=== PATIENT | male | born 1950 | race Caucasian/White ===

== ENCOUNTER 2018-09-06 18:08 | Emergency (ER) | payer OTHER, MEDICAID ==
[~2018-09-06] VITALS: Ht 165.1 cm; Wt 82.6 kg
[2018-09-06 18:22] VITALS: BP 178/92
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
--- NOTE | 2018-09-06 18:31 | NUR ---
DR VIDAL AT BEDSIDE
[2018-09-06] MEDS ORDERED: KETOROLAC 30 MG/ML VIAL IM ONE (18:35)
--- NOTE | 2018-09-06 18:35 | NUR ---
XRAY AT BEDSIDE
--- NOTE | 2018-09-06 18:56 | NUR ---
IM MEDS GIVEN-NADR AT THIS TIME
--- NOTE | 2018-09-06 19:09 | NUR ---
RECEIVED REPORT FROM SYED LAY.
--- NOTE | 2018-09-06 19:09 | NUR ---
REPORT GIVEN TO ISAAC LYNCH
[2018-09-06] MEDS ORDERED: CYCLOBENZAPRINE 10 MG TAB PO ONE (19:20)
--- NOTE | 2018-09-06 19:32 | NUR ---
SWETA FLORES D/C'D BY MICHELE LO. MED RETURNED TO [facility].
[2018-09-06 19:52] VITALS: BP 167/95
--- NOTE | 2018-09-06 19:52 | NUR ---
Patient discharged with v/s stable. Written and verbal after care instructions given and explained. Patient alert, oriented and verbalized understanding of instructions. Knee immobilizer applied by EMT. Dmonstration and teaching provided and reinforced by RN, EMT. Ambulatory with steady gait. All questions addressed prior to discharge. ID band removed. Patient advised to follow up with PMD. Rx of Ibuprofen and Colace given. Patient educated on indication of medication including possible reaction and side effects. Opportunity to ask questions provided and answered.
== END 2018-09-06 19:52 | disposition home or self-care (01) ==
LOC: MED 18:08
DX: S80.02XA Contusion of left knee, initial encounter (principal); K59.00 Constipation, unspecified; E11.9 Type 2 diabetes mellitus without complications; I10 Essential (primary) hypertension; V43.52XA Car driver injured in collision with other type car in traffic accident, initial encounter; Y93.89 Activity, other specified; Y92.89 Other specified places as the place of occurrence of the external cause; Y99.8 Other external cause status
CPT/HCPCS: 29505; 73560; 74022; 82948; 96372; 99283; J1885